=== PATIENT | male | born 1955 | race African-American/Black ===

== ENCOUNTER 2016-04-15 16:56 | Inpatient (IN) | payer MEDICAID ==
[~2016-04-15] VITALS: Ht 185.4 cm; Wt 75.6 kg
[2016-04-16] MEDS ORDERED: LORazepam 2 MG TABLET PO PRN (00:45)
[2016-04-16] MEDS ORDERED: ZOLPIDEM TARTRATE 10 MG TABLET PO PRN (00:45)
[2016-04-16] MEDS ORDERED: HALOPERIDOL 5 MG TABLET PO PRN (00:45)
[2016-04-16 01:11] VITALS: BP 150/86
[2016-04-16 08:00] LABS: APPEARANCE,URINE CLEAR (CLEAR); GLUCOSE, URINE (UA) NEGATIVE (NEGATIVE); KETONES,URINE NEGATIVE (NEGATIVE); LEUKOCYTE ESTERASE ,URINE NEGATIVE (NEGATIVE); OCCULT BLOOD,URINE MODERATE (NEGATIVE); PH,URINE 6.5 (5.0-8.0); PROTEIN,URINE SEE CONFIRM (NEGATIVE)
[2016-04-16 08:04] LABS: ADD UA MICROSCOPIC YES
[2016-04-16 08:16] LABS: SQUAMOUS EPITHELIAL CELL,UR Few /LPF (None Seen); SULFOSALICYLIC ACID,URINE 1+ (Negative); WBC,URINE None Seen /HPF (0-5)
[2016-04-16 08:30] VITALS: BP 189/88
[2016-04-16 09:52] VITALS: BP 166/77
[2016-04-16] MEDS ORDERED: LOPERAMIDE HCL 2 MG CAPSULE PO PRN (10:15)
[2016-04-16] MEDS ORDERED: MAGNESIUM HYDROXIDE SUSPENSION 30 ML UDCUP PO PRN (10:15)
[2016-04-16] MEDS ORDERED: BENZOCAINE/MENTHOL LOZENGE [8 LOZENGES/PACKET] MM PRN (10:15)
[2016-04-16] MEDS ORDERED: ACETAMINOPHEN 325 MG TABLET PO PRN (10:15)
[2016-04-16] MEDS ORDERED: ONDANSETRON HCL 4 MG TABLET PO PRN (10:15)
[2016-04-16] MEDS ORDERED: ALBUTEROL SULFATE HFA 90 MCG/PUFF 8 GM INHALER IH PRN (10:15)
[2016-04-16] MEDS ORDERED: BACITRACIN 28.4 GM OINTMENT TP PRN (10:15)
[2016-04-16] MEDS ORDERED: MAG HYDROX/AL HYDROX/SIMETH ES 30 ML SUSPENSION UDCUP PO PRN (10:15)
[2016-04-16] MEDS ORDERED: PETROLATUM,WHITE 71 GM JELLY TP PRN (10:15)
[2016-04-16] MEDS ORDERED: TraMADol HCL 50 MG TABLET PO PRN (10:15)
[2016-04-16] MEDS: FUROSEMIDE 40 MG TABLET PO SCH (12:39)
[2016-04-16] MEDS ORDERED: HydrALAZINE HCL 25 MG TABLET PO SCH (17:00)
[2016-04-16 18:18] VITALS: BP 184/92
[2016-04-16] MEDS: CloNIDine HCL 0.1 MG TABLET PO PRN (18:20)
[2016-04-16 19:20] VITALS: BP 163/88
[2016-04-16] MEDS: QUEtiapine FUMARATE 200 MG TABLET PO SCH (20:40)
[2016-04-17 06:03] VITALS: BP 177/93
[2016-04-17] MEDS: FUROSEMIDE 40 MG TABLET PO SCH (09:00)
[2016-04-17] MEDS: HydrALAZINE HCL 50 MG TABLET PO SCH (17:00)
[2016-04-17] MEDS: QUEtiapine FUMARATE 200 MG TABLET PO SCH (20:29)
[2016-04-18] VITALS (8 sets, daily range): BP systolic 160–205; BP diastolic 88–113
[2016-04-18] MEDS: CloNIDine HCL 0.1 MG TABLET PO PRN ×2 (08:53→22:21)
[2016-04-18] MEDS: FUROSEMIDE 40 MG TABLET PO SCH (08:53)
[2016-04-18] MEDS: HydrALAZINE HCL 50 MG TABLET PO SCH ×2 (08:53→17:04)
[2016-04-18] MEDS: QUEtiapine FUMARATE 200 MG TABLET PO SCH (20:35)
[2016-04-19 00:30] VITALS: BP 170/94
[2016-04-19 01:30] VITALS: BP 174/92
[2016-04-19 06:51] LABS: HEMATOCRIT 38.6 % (41-53); HEMOGLOBIN 11.4 g/dL (13.5-17.5); MEAN CORPUSCULAR HEMOGLOBIN 22.7 pg (26.0-34.0); MEAN CORPUSCULAR HGB CONC 29.6 G/dL (31.0-37.0); MEAN CORPUSCULAR VOLUME 77 fL (80-100); PLATELET COUNT (AUTO) 233 K/uL (150-450); RED BLOOD CELL COUNT(AUTO) 5.03 MIL/uL (4.50-5.90); RED CELL DISTRIBUTION WIDTH 20.5 % (11.5-14.5); WHITE BLOOD COUNT (AUTO) 5.3 K/uL (4.5-11.0)
[2016-04-19 07:08] LABS: ALBUMIN 3.5 g/dL (3.4-5.0); BILIRUBIN,TOTAL 0.9 mg/dL (0.1-1.0); CALCIUM, TOTAL 8.4 mg/dL (8.8-10.5); CREATININE 2.71 mg/dL (0.60-1.30); MAGNESIUM 1.9 mg/dL (1.80-2.40); PHOSPHORUS 3.9 mg/dL (2.5-4.9); TOTAL PROTEIN, SERUM 7.5 g/dL (6.4-8.2)
[2016-04-19 07:29] VITALS: BP 192/98
[2016-04-19] MEDS: CloNIDine HCL 0.1 MG TABLET PO PRN (07:34)
[2016-04-19 07:35] LABS: POTASSIUM 7.1 mmol/L (3.5-5.1)
[2016-04-19] MEDS: FUROSEMIDE 40 MG TABLET PO SCH (07:40)
[2016-04-19] MEDS: HydrALAZINE HCL 50 MG TABLET PO SCH (07:40)
[2016-04-19] MEDS ORDERED: SODIUM POLYSTYRENE SULFONATE 15 GM/60 ML SUSPENSION BOTTLE PO ONE (08:00)
[2016-04-19 09:50] LABS: LYMPHOCYTES % (MANUAL) 21 % (22-44); TOTAL CELLS COUNTED 100
== END 2016-04-19 09:16 | disposition home or self-care (01) | DRG 750 ==
LOC: 3EI 04-16
DX: F20.0 Paranoid schizophrenia (principal); I13.2 Hypertensive heart and chronic kidney disease with heart failure and with stage 5 chronic kidney disease, or end stage renal disease; N18.6 End stage renal disease; F31.5 Bipolar disorder, current episode depressed, severe, with psychotic features; R45.851 Suicidal ideations; K74.60 Unspecified cirrhosis of liver; I50.9 Heart failure, unspecified; B19.20 Unspecified viral hepatitis C without hepatic coma; M19.90 Unspecified osteoarthritis, unspecified site; J44.9 Chronic obstructive pulmonary disease, unspecified; K21.9 Gastro-esophageal reflux disease without esophagitis; I73.9 Peripheral vascular disease, unspecified; G47.00 Insomnia, unspecified; I25.10 Atherosclerotic heart disease of native coronary artery without angina pectoris; E87.5 Hyperkalemia; F17.210 Nicotine dependence, cigarettes, uncomplicated; F12.90 Cannabis use, unspecified, uncomplicated; Z71.51 Drug abuse counseling and surveillance of drug abuser; Z91.14 Patient's other noncompliance with medication regimen; Z88.0 Allergy status to penicillin; Z88.6 Allergy status to analgesic agent; Z99.2 Dependence on renal dialysis; Z59.0 Homelessness; Z71.6 Tobacco abuse counseling; Z91.5 Personal history of self-harm
CPT/HCPCS: 83735; 84100; 93005; Q0162

== ENCOUNTER 2016-04-19 09:24 | Inpatient (IN) | payer MEDICAID ==
[2016-04-19] VITALS (8 sets, daily range): BP systolic 159–199; BP diastolic 72–107
[2016-04-19] MEDS ORDERED: IPRATROPIUM BROMIDE 0.5 MG/2.5 ML NEB SOLUTION NEB PRN (10:30)
[2016-04-19] MEDS ORDERED: ZOLPIDEM TARTRATE 10 MG TABLET PO PRN (10:30)
[2016-04-19] MEDS ORDERED: DiphenhydrAMINE HCL 25 MG CAPSULE PO PRN (10:30)
[2016-04-19] MEDS ORDERED: BISACODYL 10 MG RECTAL RECTAL SUPPOSITORY PR PRN (10:30)
[2016-04-19] MEDS ORDERED: CloNIDine HCL 0.1 MG TABLET PO PRN (10:30)
[2016-04-19] MEDS ORDERED: ONDANSETRON HCL 4 MG/2 ML VIAL IVP PRN (10:30)
[2016-04-19] MEDS ORDERED: ALBUTEROL SULFATE 2.5 MG/0.5 ML NEB SOLUTION NEB PRN (10:30)
[2016-04-19] MEDS ORDERED: MAGNESIUM HYDROXIDE SUSPENSION 30 ML UDCUP PO PRN (10:30)
[2016-04-19] MEDS ORDERED: ACETAMINOPHEN 325 MG TABLET PO PRN (10:30)
[2016-04-19] MEDS ORDERED: LABETALOL HCL 5 MG/ML 20 ML VIAL IVP PRN (12:45)
[2016-04-19] MEDS: ISOSORB DINIT/HYDRALAZINE HCL 20-37.5 MG TABLET PO SCH ×2 (15:03→19:38)
[2016-04-19] MEDS: HYDROCODONE/ACETAMINOPHEN 5-325 MG TABLET PO PRN (19:38)
[2016-04-19] MEDS: HEPARIN SODIUM,PORCINE 5,000 UNITS/ML VIAL SQ SCH ×2 (19:38→19:44)
[2016-04-19] MEDS: QUEtiapine FUMARATE 200 MG TABLET PO SCH (19:38)
[2016-04-19 21:54] LABS: APPEARANCE,URINE CLEAR (CLEAR); GLUCOSE, URINE (UA) NEGATIVE (NEGATIVE); KETONES,URINE NEGATIVE (NEGATIVE); LEUKOCYTE ESTERASE ,URINE NEGATIVE (NEGATIVE); OCCULT BLOOD,URINE MODERATE (NEGATIVE); PH,URINE 6.5 (5.0-8.0); PROTEIN,URINE SEE CONFIRM (NEGATIVE)
[2016-04-19 21:59] LABS: ADD UA MICROSCOPIC YES
[2016-04-19 22:13] LABS: SULFOSALICYLIC ACID,URINE 3+ (Negative)
[2016-04-19 22:14] LABS: RBC,URINE 26-50 /HPF (0-2); SQUAMOUS EPITHELIAL CELL,UR Few /LPF (None Seen)
[2016-04-20 01:56] VITALS: BP 158/87
[2016-04-20] MEDS: HYDROCODONE/ACETAMINOPHEN 5-325 MG TABLET PO PRN ×3 (02:03→20:20)
[2016-04-20 04:30] VITALS: BP 154/82
[2016-04-20] MEDS: ISOSORB DINIT/HYDRALAZINE HCL 20-37.5 MG TABLET PO SCH ×3 (09:00→20:19)
[2016-04-20] MEDS: NICOTINE 21 MG/24 HOUR PATCH TD SCH (09:00)
[2016-04-20] MEDS: HEPARIN SODIUM,PORCINE 5,000 UNITS/ML VIAL SQ SCH ×2 (09:00→20:21)
[2016-04-20] MEDS: PANTOPRAZOLE SODIUM 40 MG DR TABLET PO SCH (09:00)
[2016-04-20] MEDS: VITAMIN B COMP/VIT C/FOLIC ACID CAPSULE PO SCH (10:15)
[2016-04-20 15:00] LABS: HEMATOCRIT 33.8 % (41-53); HEMOGLOBIN 10.1 g/dL (13.5-17.5); MEAN CORPUSCULAR HEMOGLOBIN 22.6 pg (26.0-34.0); MEAN CORPUSCULAR HGB CONC 29.8 G/dL (31.0-37.0); MEAN CORPUSCULAR VOLUME 76 fL (80-100); PLATELET COUNT (AUTO) 194 K/uL (150-450); RED BLOOD CELL COUNT(AUTO) 4.46 MIL/uL (4.50-5.90); RED CELL DISTRIBUTION WIDTH 20.9 % (11.5-14.5); WHITE BLOOD COUNT (AUTO) 4.9 K/uL (4.5-11.0)
[2016-04-20 15:21] VITALS: BP 146/97
[2016-04-20 15:33] LABS: ALBUMIN 3.2 g/dL (3.4-5.0); BILIRUBIN,TOTAL 0.8 mg/dL (0.1-1.0); CALCIUM, TOTAL 7.7 mg/dL (8.8-10.5); CREATININE 2.81 mg/dL (0.60-1.30); MAGNESIUM 1.7 mg/dL (1.80-2.40); PHOSPHORUS 4.9 mg/dL (2.5-4.9); POTASSIUM 5.2 mmol/L (3.5-5.1); TOTAL PROTEIN, SERUM 7.3 g/dL (6.4-8.2)
[2016-04-20 15:43] LABS: BAND NEUTROPHILS % (MANUAL) 3 % (1-5); LYMPHOCYTES % (MANUAL) 16 % (22-44); TOTAL CELLS COUNTED 100
[2016-04-20 15:56] LABS: RBC MORPHOLOGY COMMENT ABNORMAL R
[2016-04-20] MEDS ORDERED: SODIUM POLYSTYRENE SULFONATE 15 GM/60 ML SUSPENSION BOTTLE PO ONE (16:00)
[2016-04-20 16:01] LABS: THYROID STIMULATING HORMONE 1.64 uIU/mL (0.36-3.74)
[2016-04-20 19:29] VITALS: BP 177/82
[2016-04-20] MEDS: QUEtiapine FUMARATE 200 MG TABLET PO SCH (20:20)
[2016-04-20 23:52] VITALS: BP 175/97
[2016-04-21] MEDS ORDERED: HYDROCODONE/ACETAMINOPHEN 5-325 MG TABLET PO PRN (01:30)
[2016-04-21] MEDS ORDERED: ACETAMINOPHEN 325 MG TABLET PO PRN (01:30)
[2016-04-21] MEDS: NICOTINE 21 MG/24 HOUR PATCH TD SCH (09:00)
[2016-04-21] MEDS: HEPARIN SODIUM,PORCINE 5,000 UNITS/ML VIAL SQ SCH (09:00)
[2016-04-21] MEDS: VITAMIN B COMP/VIT C/FOLIC ACID CAPSULE PO SCH (09:00)
[2016-04-21] MEDS: PANTOPRAZOLE SODIUM 40 MG DR TABLET PO SCH (09:00)
[2016-04-21] MEDS: ISOSORB DINIT/HYDRALAZINE HCL 20-37.5 MG TABLET PO SCH ×2 (09:00→11:43)
[2016-04-21] MEDS ORDERED: CHOLECALCIFEROL (VIT D3) 2,000 UNITS TABLET PO SCH (10:15)
[2016-04-21 11:37] VITALS: BP 191/106
[2016-04-21 12:24] LABS: HEMATOCRIT 34.8 % (41-53); HEMOGLOBIN 10.6 g/dL (13.5-17.5); MEAN CORPUSCULAR HGB CONC 30.4 G/dL (31.0-37.0); MEAN CORPUSCULAR VOLUME 76 fL (80-100); PLATELET COUNT (AUTO) 145 K/uL (150-450); RED CELL DISTRIBUTION WIDTH 20.9 % (11.5-14.5); WHITE BLOOD COUNT (AUTO) 5.2 K/uL (4.5-11.0)
[2016-04-21 12:29] LABS: CALCIUM, TOTAL 7.6 mg/dL (8.8-10.5); CREATININE 2.64 mg/dL (0.60-1.30); POTASSIUM 5.2 mmol/L (3.5-5.1)
[2016-04-21 12:58] LABS: BAND NEUTROPHILS % (MANUAL) 13 % (1-5); LYMPHOCYTES % (MANUAL) 22 % (22-44); RBC MORPHOLOGY COMMENT ABNORMAL RBC MORPH; TOTAL CELLS COUNTED 100
== END 2016-04-21 16:00 | DRG 194 ==
LOC: 5S 09:30 → 6N 04-21 13:07
PROVIDERS: ADMIT Internal Medicine; ATTEND Internal Medicine
PROC: 5A1D00Z (ICD-10-PCS; principal; 2016-04-19)
DX: I13.2 Hypertensive heart and chronic kidney disease with heart failure and with stage 5 chronic kidney disease, or end stage renal disease (principal); N17.9 Acute kidney failure, unspecified; K74.60 Unspecified cirrhosis of liver; E87.5 Hyperkalemia; B18.2 Chronic viral hepatitis C; N18.6 End stage renal disease; I50.9 Heart failure, unspecified; F29 Unspecified psychosis not due to a substance or known physiological condition; F17.210 Nicotine dependence, cigarettes, uncomplicated; G47.00 Insomnia, unspecified; I73.9 Peripheral vascular disease, unspecified; J44.9 Chronic obstructive pulmonary disease, unspecified; K21.9 Gastro-esophageal reflux disease without esophagitis; M19.90 Unspecified osteoarthritis, unspecified site; F12.90 Cannabis use, unspecified, uncomplicated; M54.9 Dorsalgia, unspecified; Z53.29 Procedure and treatment not carried out because of patient's decision for other reasons; F32.9 Major depressive disorder, single episode, unspecified; Z99.2 Dependence on renal dialysis; Z88.6 Allergy status to analgesic agent; Z88.0 Allergy status to penicillin; Z91.018 Allergy to other foods; Z88.1 Allergy status to other antibiotic agents; Z72.89 Other problems related to lifestyle; Z79.899 Other long term (current) drug therapy; Z71.6 Tobacco abuse counseling
CPT/HCPCS: 80307; 82306; 83735; 83970; 84100; 84132; 84443; 85007; 87081; 87340; 90935; J1644

== ENCOUNTER 2016-04-21 16:20 | Inpatient (IN) | payer MEDICAID ==
[~2016-04-21] VITALS: Ht 185.4 cm; Wt 76.2 kg
[2016-04-21] MEDS ORDERED: ZOLPIDEM TARTRATE 10 MG TABLET PO PRN (17:15)
[2016-04-21] MEDS ORDERED: HALOPERIDOL 5 MG TABLET PO PRN (17:15)
[2016-04-21] MEDS ORDERED: ONDANSETRON HCL 4 MG TABLET PO PRN (19:00)
[2016-04-21] MEDS ORDERED: MAG HYDROX/AL HYDROX/SIMETH ES 30 ML SUSPENSION UDCUP PO PRN (19:00)
[2016-04-21] MEDS ORDERED: ALBUTEROL SULFATE HFA 90 MCG/PUFF 8 GM INHALER IH PRN (19:00)
[2016-04-21] MEDS ORDERED: CloNIDine HCL 0.1 MG TABLET PO PRN (19:00)
[2016-04-21] MEDS ORDERED: LOPERAMIDE HCL 2 MG CAPSULE PO PRN (19:00)
[2016-04-21] MEDS ORDERED: BACITRACIN 28.4 GM OINTMENT TP PRN (19:00)
[2016-04-21] MEDS ORDERED: PETROLATUM,WHITE 71 GM JELLY TP PRN (19:00)
[2016-04-21] MEDS ORDERED: MAGNESIUM HYDROXIDE SUSPENSION 30 ML UDCUP PO PRN (19:00)
[2016-04-21] MEDS ORDERED: BENZOCAINE/MENTHOL LOZENGE [8 LOZENGES/PACKET] MM PRN (19:15)
[2016-04-21] MEDS: QUEtiapine FUMARATE 200 MG TABLET PO SCH (20:50)
[2016-04-21] MEDS ORDERED: INFLUENZA VIRUS VACCINE QVS 2016-17 (3YR+)/PF 60 MCG/0.5 ML SYRINGE IM ONE (21:15)
[2016-04-21 21:18] VITALS: BP 163/96
[2016-04-22 06:37] LABS: ALBUMIN 3.1 g/dL (3.4-5.0); BILIRUBIN,TOTAL 0.8 mg/dL (0.1-1.0); CALCIUM, TOTAL 7.8 mg/dL (8.8-10.5); CREATININE 2.71 mg/dL (0.60-1.30); POTASSIUM 5.6 mmol/L (3.5-5.1); TOTAL PROTEIN, SERUM 6.9 g/dL (6.4-8.2)
[2016-04-22 06:58] LABS: HEMATOCRIT 32.2 % (41-53); HEMOGLOBIN 10.3 g/dL (13.5-17.5); MEAN CORPUSCULAR HEMOGLOBIN 23.7 pg (26.0-34.0); MEAN CORPUSCULAR HGB CONC 31.9 G/dL (31.0-37.0); MEAN CORPUSCULAR VOLUME 74 fL (80-100); PLATELET COUNT (AUTO) 156 K/uL (150-450); RED BLOOD CELL COUNT(AUTO) 4.32 MIL/uL (4.50-5.90); RED CELL DISTRIBUTION WIDTH 19.7 % (11.5-14.5); WHITE BLOOD COUNT (AUTO) 4.4 K/uL (4.5-11.0)
[2016-04-22 07:02] LABS: MAGNESIUM 1.9 mg/dL (1.80-2.40)
[2016-04-22] MEDS: ISOSORB DINIT/HYDRALAZINE HCL 20-37.5 MG TABLET PO SCH ×3 (08:12→17:55)
[2016-04-22] MEDS: METOPROLOL TARTRATE 50 MG TABLET PO SCH ×2 (08:14→17:56)
[2016-04-22] MEDS: OMEPRAZOLE 20 MG CAPSULE PO SCH (08:14)
[2016-04-22] MEDS: CHOLECALCIFEROL (VIT D3) 1,000 UNITS TABLET PO SCH (08:18)
[2016-04-22] MEDS: NICOTINE 21 MG/24 HOUR PATCH TD SCH (08:18)
[2016-04-22] MEDS: VITAMIN B COMP/VIT C/FOLIC ACID CAPSULE PO SCH (08:18)
[2016-04-22] MEDS ORDERED: SODIUM POLYSTYRENE SULFONATE 15 GM/60 ML SUSPENSION BOTTLE PO ONE ×2 (08:30→11:30)
[2016-04-22 08:39] LABS: BAND NEUTROPHILS % (MANUAL) 8 % (1-5); LYMPHOCYTES % (MANUAL) 16 % (22-44); TOTAL CELLS COUNTED 100
[2016-04-22 08:40] LABS: RBC MORPHOLOGY COMMENT ABNORMAL R
[2016-04-22] MEDS ORDERED: DOCUSATE SODIUM 100 MG CAPSULE PO SCH (09:00)
[2016-04-22] MEDS ORDERED: CHOLECALCIFEROL (VIT D3) 2,000 UNITS TABLET PO SCH (11:30)
[2016-04-22] MEDS: CALCITRIOL 0.25 MCG CAPSULE PO SCH (12:22)
[2016-04-22] MEDS ORDERED: TraMADol HCL 50 MG TABLET PO PRN (18:45)
[2016-04-22] MEDS: QUEtiapine FUMARATE 200 MG TABLET PO SCH (21:21)
[2016-04-23] MEDS: VITAMIN B COMP/VIT C/FOLIC ACID CAPSULE PO SCH ×2 (09:00→10:41)
[2016-04-23] MEDS: QUEtiapine FUMARATE 200 MG TABLET PO SCH ×3 (09:00→21:05)
[2016-04-23] MEDS: NICOTINE 21 MG/24 HOUR PATCH TD SCH ×2 (09:00→10:44)
[2016-04-23] MEDS: CALCITRIOL 0.25 MCG CAPSULE PO SCH ×2 (09:00→10:41)
[2016-04-23] MEDS: CHOLECALCIFEROL (VIT D3) 1,000 UNITS TABLET PO SCH ×2 (09:00→10:40)
[2016-04-23] MEDS: OMEPRAZOLE 20 MG CAPSULE PO SCH (10:40)
[2016-04-23] MEDS: ESCITALOPRAM OXALATE 10 MG TABLET PO SCH ×2 (10:41→13:01)
[2016-04-23] MEDS: ISOSORB DINIT/HYDRALAZINE HCL 20-37.5 MG TABLET PO SCH ×4 (10:42→17:57)
[2016-04-23] MEDS: METOPROLOL TARTRATE 50 MG TABLET PO SCH ×2 (10:42→17:57)
[2016-04-23 14:38] LABS: CALCIUM, TOTAL 7.7 mg/dL (8.8-10.5); CREATININE 2.97 mg/dL (0.60-1.30); MAGNESIUM 1.9 mg/dL (1.80-2.40); PHOSPHORUS 4.4 mg/dL (2.5-4.9)
[2016-04-23 14:45] LABS: POTASSIUM 6.2 mmol/L (3.5-5.1)
[2016-04-23] MEDS ORDERED: SODIUM POLYSTYRENE SULFONATE 15 GM/60 ML SUSPENSION BOTTLE PO ONE ×2 (15:00→22:00)
[2016-04-23 20:09] LABS: CALCIUM, TOTAL 7.8 mg/dL (8.8-10.5); CREATININE 2.9 mg/dL (0.60-1.30); POTASSIUM 5.7 mmol/L (3.5-5.1)
[2016-04-23] MEDS: LORazepam 2 MG TABLET PO PRN (22:27)
[2016-04-24 07:11] LABS: CALCIUM, TOTAL 7.7 mg/dL (8.8-10.5); CREATININE 2.73 mg/dL (0.60-1.30); PHOSPHORUS 4.8 mg/dL (2.5-4.9)
[2016-04-24] MEDS: OMEPRAZOLE 20 MG CAPSULE PO SCH (08:22)
[2016-04-24] MEDS: CALCITRIOL 0.25 MCG CAPSULE PO SCH (08:22)
[2016-04-24] MEDS: ISOSORB DINIT/HYDRALAZINE HCL 20-37.5 MG TABLET PO SCH ×3 (08:23→17:25)
[2016-04-24] MEDS: ESCITALOPRAM OXALATE 10 MG TABLET PO SCH (08:23)
[2016-04-24] MEDS: CHOLECALCIFEROL (VIT D3) 1,000 UNITS TABLET PO SCH (08:23)
[2016-04-24] MEDS: METOPROLOL TARTRATE 50 MG TABLET PO SCH ×2 (08:23→17:24)
[2016-04-24 09:00] VITALS: BP 195/97
[2016-04-24] MEDS ORDERED: SODIUM POLYSTYRENE SULFONATE 15 GM/60 ML SUSPENSION BOTTLE PO ONE (09:00)
[2016-04-24] MEDS: NICOTINE 21 MG/24 HOUR PATCH TD SCH (09:00)
[2016-04-24] MEDS: QUEtiapine FUMARATE 200 MG TABLET PO SCH ×2 (09:00→20:11)
[2016-04-24] MEDS: VITAMIN B COMP/VIT C/FOLIC ACID CAPSULE PO SCH (09:00)
[2016-04-24 13:00] VITALS: BP 178/87
[2016-04-24] MEDS: CloNIDine HCL 0.1 MG TABLET PO SCH (17:24)
[2016-04-24 18:30] VITALS: BP 194/96
[2016-04-25 00:01] VITALS: BP 152/78
[2016-04-25] MEDS: CloNIDine HCL 0.1 MG TABLET PO SCH ×3 (00:01→16:33)
[2016-04-25] MEDS: LORazepam 2 MG TABLET PO PRN (04:41)
[2016-04-25] MEDS: ISOSORB DINIT/HYDRALAZINE HCL 20-37.5 MG TABLET PO SCH ×3 (08:47→19:30)
[2016-04-25] MEDS: CALCITRIOL 0.25 MCG CAPSULE PO SCH (08:47)
[2016-04-25] MEDS: OMEPRAZOLE 20 MG CAPSULE PO SCH (08:48)
[2016-04-25] MEDS: METOPROLOL TARTRATE 50 MG TABLET PO SCH ×2 (08:48→19:30)
[2016-04-25] MEDS: ESCITALOPRAM OXALATE 10 MG TABLET PO SCH (08:49)
[2016-04-25] MEDS: NICOTINE 21 MG/24 HOUR PATCH TD SCH (09:00)
[2016-04-25] MEDS: VITAMIN B COMP/VIT C/FOLIC ACID CAPSULE PO SCH (09:00)
[2016-04-25] MEDS: CHOLECALCIFEROL (VIT D3) 1,000 UNITS TABLET PO SCH (09:00)
[2016-04-25] MEDS: QUEtiapine FUMARATE 200 MG TABLET PO SCH ×2 (09:00→20:35)
[2016-04-25 10:15] VITALS: BP 148/90
[2016-04-25 17:54] VITALS: BP 166/88
[2016-04-26 00:01] VITALS: BP 171/99
[2016-04-26] MEDS: CloNIDine HCL 0.1 MG TABLET PO SCH ×3 (00:01→16:00)
[2016-04-26] MEDS: LORazepam 2 MG TABLET PO PRN ×2 (00:19→08:20)
[2016-04-26 08:00] VITALS: BP 178/102
[2016-04-26] MEDS: VITAMIN B COMP/VIT C/FOLIC ACID CAPSULE PO SCH (08:05)
[2016-04-26] MEDS: METOPROLOL TARTRATE 50 MG TABLET PO SCH ×2 (08:05→17:14)
[2016-04-26] MEDS: CALCITRIOL 0.25 MCG CAPSULE PO SCH (08:05)
[2016-04-26] MEDS: ESCITALOPRAM OXALATE 10 MG TABLET PO SCH (08:05)
[2016-04-26] MEDS: ISOSORB DINIT/HYDRALAZINE HCL 20-37.5 MG TABLET PO SCH ×3 (08:05→17:14)
[2016-04-26] MEDS: QUEtiapine FUMARATE 200 MG TABLET PO SCH ×2 (08:05→20:27)
[2016-04-26] MEDS: CHOLECALCIFEROL (VIT D3) 1,000 UNITS TABLET PO SCH (08:05)
[2016-04-26] MEDS: OMEPRAZOLE 20 MG CAPSULE PO SCH (08:05)
[2016-04-26] MEDS: NICOTINE 21 MG/24 HOUR PATCH TD SCH (09:00)
[2016-04-26 10:25] VITALS: BP 166/98
[2016-04-26 17:12] VITALS: BP 178/95
[2016-04-27 07:17] LABS: CALCIUM, TOTAL 8.1 mg/dL (8.8-10.5); CREATININE 2.95 mg/dL (0.60-1.30); PHOSPHORUS 4.2 mg/dL (2.5-4.9); POTASSIUM 5.6 mmol/L (3.5-5.1)
[2016-04-27] MEDS: CALCITRIOL 0.25 MCG CAPSULE PO SCH (08:41)
[2016-04-27] MEDS: ISOSORB DINIT/HYDRALAZINE HCL 20-37.5 MG TABLET PO SCH ×3 (08:41→16:42)
[2016-04-27] MEDS: QUEtiapine FUMARATE 200 MG TABLET PO SCH ×2 (08:42→20:43)
[2016-04-27] MEDS: CloNIDine HCL 0.1 MG TABLET PO SCH ×3 (08:42→16:26)
[2016-04-27] MEDS: VITAMIN B COMP/VIT C/FOLIC ACID CAPSULE PO SCH (08:42)
[2016-04-27] MEDS: ESCITALOPRAM OXALATE 10 MG TABLET PO SCH (08:42)
[2016-04-27] MEDS: METOPROLOL TARTRATE 50 MG TABLET PO SCH ×2 (08:42→16:42)
[2016-04-27] MEDS: CHOLECALCIFEROL (VIT D3) 1,000 UNITS TABLET PO SCH (08:42)
[2016-04-27] MEDS: OMEPRAZOLE 20 MG CAPSULE PO SCH (08:43)
[2016-04-27] MEDS: NICOTINE 21 MG/24 HOUR PATCH TD SCH (08:43)
[2016-04-27] MEDS ORDERED: SODIUM POLYSTYRENE SULFONATE 15 GM/60 ML SUSPENSION BOTTLE PO ONE (13:00)
[2016-04-27 13:16] VITALS: BP 151/79
[2016-04-27] MEDS: SODIUM BICARBONATE 650 MG TABLET PO SCH (16:43)
[2016-04-27 16:55] VITALS: BP 163/92
[2016-04-27] MEDS: LORazepam 2 MG TABLET PO PRN (22:30)
[2016-04-28 00:03] VITALS: BP 152/100
[2016-04-28] MEDS: CloNIDine HCL 0.1 MG TABLET PO SCH ×2 (08:00)
[2016-04-28 08:06] LABS: ALBUMIN URINE (ELP24) 61.9 %; ALPHA-1 URINE (ELP24) 7.4 %; ALPHA-2 URINE(ELP24) 7.6 %; BETA URINE(ELP24) 14.5 %; GAMMA URINE(ELP24) 8.6 %; TOTAL PROTEIN URINE 94.4 mg/dL (Not Estab.)
[2016-04-28] MEDS: ISOSORB DINIT/HYDRALAZINE HCL 20-37.5 MG TABLET PO SCH ×2 (09:00→13:00)
[2016-04-28] MEDS: CHOLECALCIFEROL (VIT D3) 1,000 UNITS TABLET PO SCH (09:00)
[2016-04-28] MEDS: CALCITRIOL 0.25 MCG CAPSULE PO SCH (09:00)
[2016-04-28] MEDS: SODIUM BICARBONATE 650 MG TABLET PO SCH (09:00)
[2016-04-28] MEDS: OMEPRAZOLE 20 MG CAPSULE PO SCH (09:00)
[2016-04-28] MEDS: ESCITALOPRAM OXALATE 10 MG TABLET PO SCH (09:00)
[2016-04-28] MEDS: METOPROLOL TARTRATE 50 MG TABLET PO SCH (09:00)
[2016-04-28] MEDS: NICOTINE 21 MG/24 HOUR PATCH TD SCH (09:00)
[2016-04-28] MEDS: VITAMIN B COMP/VIT C/FOLIC ACID CAPSULE PO SCH (09:00)
[2016-04-28] MEDS: QUEtiapine FUMARATE 200 MG TABLET PO SCH (09:00)
[2016-04-28] MEDS ORDERED: AmLODIPine BESYLATE 5 MG TABLET PO SCH (09:15)
[2016-04-28] MEDS ORDERED: ESCI10TA PO (12:53)
[2016-04-28] MEDS ORDERED: QUET200T PO ×2 (12:53)
[2016-04-28] MEDS ORDERED: AMLO-511 PO (12:55)
[2016-04-28] MEDS ORDERED: CALC25 PO (13:00)
[2016-04-28] MEDS ORDERED: VITAD1000 PO (13:01)
[2016-04-28] MEDS ORDERED: CLON.1 PO (13:02)
[2016-04-28] MEDS ORDERED: ISOS1TAB2 PO (13:03)
[2016-04-28] MEDS ORDERED: METO50 PO (13:03)
[2016-04-28] MEDS ORDERED: OMEP20 PO (13:03)
[2016-04-28] MEDS ORDERED: FOLI1CAP2 PO (13:09)
[2016-04-28] MEDS ORDERED: SODI650T PO (13:10)
== END 2016-04-28 15:05 | disposition home or self-care (01) | DRG 753 ==
LOC: 3EI 16:20
PROC: 5A1D60Z (ICD-10-PCS; principal; 2016-04-21)
DX: F31.4 Bipolar disorder, current episode depressed, severe, without psychotic features (principal); I13.2 Hypertensive heart and chronic kidney disease with heart failure and with stage 5 chronic kidney disease, or end stage renal disease; N17.9 Acute kidney failure, unspecified; R45.851 Suicidal ideations; I50.22 Chronic systolic (congestive) heart failure; K74.60 Unspecified cirrhosis of liver; N18.6 End stage renal disease; J44.9 Chronic obstructive pulmonary disease, unspecified; E21.3 Hyperparathyroidism, unspecified; K21.9 Gastro-esophageal reflux disease without esophagitis; M19.90 Unspecified osteoarthritis, unspecified site; I73.9 Peripheral vascular disease, unspecified; E87.5 Hyperkalemia; B19.20 Unspecified viral hepatitis C without hepatic coma; Z88.0 Allergy status to penicillin; Z88.5 Allergy status to narcotic agent; Z79.51 Long term (current) use of inhaled steroids; Z91.018 Allergy to other foods; Z88.6 Allergy status to analgesic agent; Z79.899 Other long term (current) drug therapy; Z91.19 Patient's noncompliance with other medical treatment and regimen; Z91.14 Patient's other noncompliance with medication regimen; Z99.2 Dependence on renal dialysis
CPT/HCPCS: 76770; 81050; 82575; 83735; 84100; 84156; 84166; 84300; 84540; J3535